=== PATIENT | female | born 1970 | race Caucasian/White ===

== ENCOUNTER 2020-03-23 18:22 | Emergency (ER) | payer BC, SELFPAY ==
--- NOTE | ~2020-03-23 | XR_ITS ---
EXAMINATION: XR wrist LT min 3V DATE: 03/23/2020 18:56 INDICATION: Left wrist pain post fall TECHNIQUE: Posteroanterior, ulnar deviation, oblique, and lateral views of the left wrist were obtain ed. COMPARISON: none FINDINGS: Transverse extra articular fracture across the metaphysis of the distal left radius. Negligible dorsa l angulation with mild buckling of the dorsal cortex. No other fractures identified. Normal alignment and joint spaces in the visualized left hand. Mild soft tissue swelling about the distal radius. IMPRESSION: 1. Nondisplaced extra articular fracture of the distal left radial metaphysis with negligible dorsal angulation. Reviewed, dictated and finalized at location A. IMPRESSION: 1. Nondisplaced extra articular fracture of the distal left radial metaphysis w ith negligible dorsal angulation.
[2020-03-23 18:28] VITALS: BP 129/63; PULSE 73; RESP 20; TEMP 37.3; O2SAT 100
--- NOTE | 2020-03-23 19:09 | ED.GENADULT ---
HPI - General Adult General Chief complaint: Extremity Injury, Upper Stated complaint: Fall, L wrist pain Time Seen by Provider: 03/23/20 18:33 Source: patient Mode of arrival: ambulatory Limitations: no limitations History of Present Illness HPI narrative: patient is a 49-year-old female who presents with wrist injury after falling on an outstretched wrist with resultant moderate aching pain of the wrist with swelling patient notes isolated injury to the wrist denies any other injuries or complaints has not had anything for symptoms does note improvement with rest ice and elevation Related Data Allergies Allergy/AdvReac Type Severity Reaction Status Date / Time No Known Allergies Allergy Verified 03/23/20 18:44 Review of Systems Review of Systems: All systems reviewed & are unremarkable except as noted in HPI and below PMFSH Social History Social History (Updated 03/23/20 @ 19:12 by Navdeep Vargas PA-C) Smoking status: Never smoker Exam Narrative: Exam Narrative: GENERAL: Well-appearing, well-nourished, and in no acute distress. HEAD: Normocephalic, atraumatic. EYES: PERRLA and EOMI. ENT: Nares clear, no rhinorrhea or epistaxis. Mucous membranes moist. EXTREMITIES: Swelling tenderness over the dorsal surface of the left wrist joint primary tenderness over the distal radius SKIN: Warm, dry, no rash. NEURO: No focal deficits. Alert and oriented x3. Cranial nerves II through XII grossly intact. Neurovascularly intact PSYCH: Normal mood and affect. Course Course Emergency Course: Patient in the room in no distress aware of case findings treatment plan diagnosis Vital Signs Vital signs: Vital Signs Temperature 99.2 F 03/23/20 18:28 Pulse Rate 73 03/23/20 18:28 Respiratory Rate 20 03/23/20 18:28 Blood Pressure 129/63 03/23/20 18:28 Pulse Oximetry 100 03/23/20 18:28 Temperature 99.2 F 03/23/20 18:28 Pulse Rate 73 03/23/20 18:28 Respiratory Rate 03/23/20 18:28 Blood Pressure 129/63 03/23/20 18:28 Pulse Oximetry 100 03/23/20 18:28 Medical Decision Making MDM Narrative Medical decision making narrative: Patients injury or pain is consistent with musculoskeletal etiology. No signs of neurological or vascular compromise on exam. Compartments and tisues are soft without signs of compartment syndrome. Pain is felt appropriate for further evaluation on an outpatient basis. Patient splinted and OCL fabricated in the emergency department felt appropriate for outpatient reevaluation by orthopedic surgery Vital Signs Vital Signs: Vital Signs Temperature 99.2 F 03/23/20 18:28 Pulse Rate 73 03/23/20 18:28 Respiratory Rate 20 03/23/20 18:28 Blood Pressure 129/63 03/23/20 18:28 Pulse Oximetry 100 03/23/20 18:28 Temperature 99.2 F 03/23/20 18:28 Pulse Rate 73 03/23/20 18:28 Respiratory Rate 20 03/23/20 18:28 Blood Pressure 129/63 03/23/20 18:28 Pulse Oximetry 100 03/23/20 18:28 Discharge Plan Discharge Clinical Impression: Fracture of left wrist Patient Disposition: Home, Self-Care Condition: Stable Instructions: Antibiotic Form, How to Use a Sling (ED), Arm Fracture in Adults (ED) Additional Instructions: Follow-up with orthopedic surgery first thing Thursday to set up for reevaluation Wear splint with intermittent icing rest and elevation Follow patient education sheets Only take medications as directed Return if symptoms worsen or concerns or any increase in redness swelling pain fever over 100.5 or any loss of feeling or function in the extremity Follow-up/Referrals: UNKNOWN,DOCTOR [Primary Care Provider] - Jesus Shook MD [Physician] - Stand Alone Forms: Work/School Release IP
[2020-03-23 19:50] VITALS: BP 118/73; PULSE 63; RESP 16; TEMP 36.6; O2SAT 100
== END 2020-03-23 20:11 | disposition home or self-care (01) ==
PROVIDERS: Emergency Provider Emergency Medicine
DX: S59.292A Other physeal fracture of lower end of radius, left arm, initial encounter for closed fracture (principal); W19.XXXA Unspecified fall, initial encounter
CPT/HCPCS: 29125; 73110; 99284; A4565; A9270

== ENCOUNTER 2022-05-05 18:10 | Emergency (ER) | payer OTHER, BC, SELFPAY ==
--- NOTE | ~2022-05-05 | CT_ITS ---
EXAMINATION: CT brain wo con DATE: 05/05/2022 19:03 INDICATION: head injury . TECHNIQUE: Computed tomography (CT) of the head was performed without intravenous contrast. The mA wa s adjusted according to patient size. Iterative reconstruction technique was employed. The dose-lengt h product was 605.33 mGy-cm. COMPARISON: None FINDINGS: No acute intracranial hemorrhage or extra-axial fluid collection. No hydrocephalus, mass, or herniation. No acute ischemic infarct. Unremarkable dural venous sinus attenuation. No acute osseous abnormality. The aerated spaces are clear. IMPRESSION: No acute intracranial process. Reviewed, dictated and finalized at location K.
[2022-05-05 18:11] VITALS: BP 134/83; PULSE 82; RESP 16; TEMP 37; O2SAT 99
[2022-05-05 18:37] VITALS: BP 116/74; PULSE 86; RESP 16; O2SAT 100
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
== END 2022-05-05 20:30 | disposition home or self-care (01) ==
PROVIDERS: Emergency Provider Emergency Medicine
DX: S06.0X0A Concussion without loss of consciousness, initial encounter (principal); V43.52XA Car driver injured in collision with other type car in traffic accident, initial encounter
CPT/HCPCS: 70450; 99284